=== PATIENT | male | born 1960 | race Caucasian/White ===

== ENCOUNTER 2024-11-03 18:36 | Emergency (ER) | payer OTHER ==
[~2024-11-03] VITALS: Ht 175.3 cm; Wt 100.0 kg
[2024-11-03 19:12] VITALS: O2SAT 97
[2024-11-03] MEDS: KETOROLAC 15MG/ML VIAL IM ONE (21:44)
[2024-11-03] MEDS ORDERED: LIDO-53 TP (23:27)
[2024-11-03] MEDS ORDERED: NAPR-1176 MT (23:27)
[2024-11-03 23:41] VITALS: BP 150/80; PULSE 84; RESP 18; TEMP 36.7; O2SAT 97
== END 2024-11-03 23:48 | disposition home or self-care (01) ==
LOC: ER 18:36
DX: M25.462 Effusion, left knee (principal); E78.00 Pure hypercholesterolemia, unspecified; I10 Essential (primary) hypertension; Z79.899 Other long term (current) drug therapy; Z96.659 Presence of unspecified artificial knee joint; Z79.1 Long term (current) use of non-steroidal anti-inflammatories (NSAID); Z88.1 Allergy status to other antibiotic agents; Z88.0 Allergy status to penicillin
CPT/HCPCS: 73562; 96372; 99283; J1885; Z7610